=== PATIENT | male | born 1970 | race Two or more races ===

== ENCOUNTER → 2024-12-01 | Outpatient (CLI) | payer MEDICAID, SELFPAY ==
--- NOTE | 2024-12-01 | XR_ITS ---
Examination: Wrist, right 3 views Technique: Wrist AP, oblique, lateral 3 views Date and time of exam: December 01, 2024 1227 hours INDICATIONS: Injury to the wrist today, wrist pain. FINDINGS: Acute spiral fracture mid fourth metacarpal shaft Possible traumatic widening at the carpal fourth metacarpal joint, consider CT scan wrist without contrast follow-up IMPRESSION: Acute fracture fourth metacarpal shaft Possible traumatic widening at the carpal fourth metacarpal joint
--- NOTE | 2024-12-01 | XR_ITS ---
Examination: Hand, right 3 views Technique: Hand AP, oblique, lateral 3 views Date and time of exam: December 01, 2024 1227 hours INDICATIONS: Injury to the hand today, hand pain. FINDINGS: Acute spiral fracture midshaft fourth metacarpal Possible subluxation at the carpal fourth metacarpal joint Soft tissue swelling about the fourth digit IMPRESSION: Fracture midportion fourth metacarpal with possible subluxation at the carpal fourth metacarpal joint
== END | disposition home or self-care (01) ==
PROVIDERS: PCP Physician Assistant; Referring Provider Nurse Practitioner Gerontology; Visit Provider Nurse Practitioner Gerontology
DX: S62.394A Other fracture of fourth metacarpal bone, right hand, initial encounter for closed fracture (principal); X58.XXXA Exposure to other specified factors, initial encounter
CPT/HCPCS: 73110; 73130